=== PATIENT | male | born 1960 | race Caucasian/White ===

== ENCOUNTER 2019-03-12 10:58 | Emergency (ER) | payer BC ==
--- NOTE | 2019-03-12 11:19 | EDM.PDOC ---
ED HPI GENERAL MEDICAL PROBLEM - General Chief Complaint: Lower Extremity Injury/Pain Stated Complaint: FALL INJURED LEFT LEG Time Seen by Provider: 03/12/19 11:19 Source of Information: Reports: Patient - History of Present Illness INITIAL COMMENTS - FREE TEXT/NARRATIVE: HISTORY AND PHYSICAL: History of present illness: Patient presents with left knee pain post fall last night, he was doing some drinking at home and felt to his knee complains of 8 out of 10 pain with weightbearing he had went to [facility] in purchasing crutches continues to have pain no bruising no fever nausea vomiting chills sweats no chest pain shortness breath headache dizziness palpitation no bowel or urine symptoms no head injury or loss of consciousness ] Review of systems: As per history of present illness and below otherwise all systems reviewed and negative. Past medical history: As per history of present illness and as reviewed below otherwise noncontributory. Surgical history: As per history of present illness and as reviewed below otherwise noncontributory. Social history: No reported history of drug or alcohol abuse. Family history: As per history of present illness and as reviewed below otherwise noncontributory. Physical exam: HEENT: Atraumatic, normocephalic, pupils reactive, negative for conjunctival pallor or scleral icterus, mucous membranes moist, throat clear, neck supple, nontender, trachea midline. Lungs: Clear to auscultation, breath sounds equal bilaterally, chest nontender. Heart: S1S2, regular, negative for clicks, rubs, or JVD. Abdomen: Soft, nondistended, nontender. Negative for masses or hepatosplenomegaly. Negative for costovertebral tenderness. Pelvis: Stable nontender. Genitourinary: Deferred. Rectal: Deferred. Extremities: Atraumatic, negative for cords or calf pain. Neurovascular unremarkable. Left lower extremity hip and ankle and affected knee pain with examination limited exam due to pain no redness warmth or swelling no bruising or open lesion entirely limb neurovascularly intact Neuro: Awake, alert, oriented. Cranial nerves II through XII unremarkable. Cerebellum unremarkable. Motor and sensory unremarkable throughout. Exam nonfocal. Diagnostics: []CBC uric acid X-ray 3 views left knee Therapeutics: Immobilizer [Crutches nonweightbearing Rest ice ibuprofen ] Impression: [ left knee pain/injury History of or calf left knee with hardware placement ] Definitive disposition and diagnosis as appropriate pending reevaluation and review of above. left knee Pain Score (Numeric/FACES): 3 - Related Data Allergies Allergy/AdvReac Type Severity Reaction Status Date / Time No Known Allergies Allergy Verified 03/12/19 11:17 Home Meds: Home Meds Blood Pressure Med 03/12/19 [History] Omeprazole Magnesium [Prilosec] 03/12/19 [History] Review of Systems - Review of Systems Review Of Systems: See Below ED EXAM, GENERAL - Physical Exam Exam: See Below Course - Vital Signs Last Recorded V/S: Last Vital Signs Temp 97 F 03/12/19 11:18 Pulse 81 03/12/19 11:18 Resp 18 03/12/19 11:18 BP 145/84 H 03/12/19 11:18 Pulse Ox 97 03/12/19 11:18 - Orders/Labs/Meds Labs: Laboratory Tests 03/12/19 03/12/19 Range/Units 11:50 11:50 WBC 11.90 H (4.0-11.0) K/uL RBC 4.68 (4.50-5.90) M/uL Hgb 15.2 (13.0-17.0) g/dL Hct 44.9 (38.0-50.0) % MCV 95.9 (80.0-98.0) fL MCH 32.5 H (27.0-32.0) pg MCHC 33.9 (31.0-37.0) g/dL RDW Std Deviation 50.4 (28.0-62.0) fl RDW Coeff of Yanni 14 (11.0-15.0) % Plt Count 212 (150-400) K/uL MPV 8.50 (7.40-12.00) fL Neut % (Auto) 77.3 (48.0-80.0) % Lymph % (Auto) 13.0 L (16.0-40.0) % Miller % (Auto) 8.7 (0.0-15.0) % Eos % (Auto) 0.8 (0.0-7.0) % Baso % (Auto) 0.2 (0.0-1.5) % Neut # (Auto) 9.2 H (1.4-5.7) K/uL Lymph # (Auto) 1.6 (0.6-2.4) K/uL Miller # (Auto) 1.0 H (0.0-0.8) K/uL Eos # (Auto) 0.1 (0.0-0.7) K/uL Baso # (Auto) 0.0 (0.0-0.1) K/uL Nucleated RBC % 0.0 /100WBC Nucleated RBCs # 0 K/uL Uric Acid 5.2 (2.6-7.2) mg/dL Departure - Departure Time of Disposition: 12:24 Disposition: Home, Self-Care 01 Condition: Good Clinical Impression: Left knee injury - Discharge Information Referrals: PCP,Unknown [Primary Care Provider] - Forms: ED Department Discharge Additional Instructions: [employer]ilizer crutches nonweightbearing Medication as prescribed Return if symptoms persist or worsen Follow-up with ortho on return home to [place] next week ; if plans change he may follow-up with our orthopedist, I can be contacted at phone number provided below [facility] [address] [id number] my orthopedic The following information is given to patients seen in the emergency department who are being discharged to home. This information is to outline your options for follow-up care. We provide all patients seen in our emergency department with a follow-up referral. The need for follow-up, as well as the timing and circumstances, are variable depending upon the specifics of your emergency department visit. If you don't have a primary care physician on staff, we will provide you with a referral. We always advise you to contact your personal physician following an emergency department visit to inform them of the circumstance of the visit and for follow-up with them and/or the need for any referrals to a consulting specialist. The emergency department will also refer you to a specialist when appropriate. This referral assures that you have the opportunity for follow-up care with a specialist. All of these measure are taken in an effort to provide you with optimal care, which includes your follow-up. Under all circumstances we always encourage you to contact your private physician who remains a resource for coordinating your care. When calling for follow-up care, please make the office aware that this follow-up is from your recent emergency room visit. If for any reason you are refused follow-up, please contact the [facility] emergency department at and asked to speak to the emergency department charge nurse.
--- NOTE | 2019-03-12 11:43 | CR ---
Pain 3 views of the left knee. Findings: Postsurgical changes of the distal femur with old fracture deformity with abundant mature callus. Normal alignment. No significant effusion. There is mild anterior soft tissue swelling. No acute fractures are seen. Minimal degenerative change of the left knee. Dictated by Anne Hampton MD @ Mar 12 2019 11:41AM Signed by Dr. Anne Hampton @ Mar 12 2019 11:42AM
== END 2019-03-12 12:48 | disposition home or self-care (01) ==
LOC: MW.ED 10:58
DX: S89.92XA Unspecified injury of left lower leg, initial encounter (principal); W19.XXXA Unspecified fall, initial encounter
CPT/HCPCS: 36415; 73562-26-LT; 73562-LT; 84550; 85025; 99283; 99283-25